=== PATIENT | male | born 1985 | race American Indian/Alaskan Native ===

== ENCOUNTER 2016-04-30 13:07 | Emergency (ER) | payer MEDICAID, OTHER ==
[2016-04-30 13:07] VITALS: BMI 17.4
[2016-04-30 13:26] VITALS: O2SAT 99
[2016-04-30] MEDS ORDERED: Sodium Chloride 0.9% 1,000 ML IV SCH (13:45)
--- NOTE | 2016-04-30 14:17 | ED PDOC ---
HPI: Back Time Seen by Provider: 04/30/16 13:17 Chief Complaint (Nursing): Back Pain Chief Complaint (Provider): back pain History Per: Patient Additional Complaint(s): pt c/o low back pain since 03/05, worsening over the past 3 days. states he works at [employer] though he denies fall or injury. denies fever, cp, sob, abd pain, n/v, incontinence, numbness, weakness distally. no previous hx back pains. no otc meds attempted. Past Medical History Reviewed: Historical Data, Nursing Documentation, Vital Signs Vital Signs: Last Vital Signs Temp 98.8 F 04/30/16 13:12 Pulse 115 H 04/30/16 13:12 Resp 16 04/30/16 13:12 BP 134/76 04/30/16 13:12 Pulse Ox 99 04/30/16 13:12 - Medical History PMH: No Chronic Diseases Denies: HIV - Family History Family History: States: No Known Family Hx - Social History Current smoker - smoking cessation education provided: Yes Alcohol: < 2 Drinks/Day Drugs: Denies - Home Medications Home Medications: Ambulatory Orders Medication Instructions Recorded Cyclobenzaprine [Cyclobenzaprine 10 mg PO Q8 #15 tab 04/30/16 HCl] Naproxen [Naprosyn] 500 mg PO Q12 #20 tablet 04/30/16 - Allergies Allergies/Adverse Reactions: Allergies Allergy/AdvReac Type Severity Reaction Status Date / Time No Known Allergies Allergy Verified 11/14/13 02:37 Review of Systems ROS Statement: Except As Marked, All Systems Reviewed And Found Negative Musculoskeletal: Positive for: Back Pain Physical Exam - Reviewed Nursing Documentation Reviewed: Yes Vital Signs Reviewed: Yes - Physical Exam Appears: Positive for: Non-toxic, Uncomfortable Skin: Positive for: Normal Color, Warm, DRY Cardiovascular/Chest: Positive for: Regular Rate, Rhythm, Tachycardia Respiratory: Positive for: CNT, Normal Breath Sounds Gastrointestinal/Abdominal: Positive for: Normal Exam, Bowel Sounds, Soft. Negative for: Tenderness Back: Positive for: Decreased ROM, Muscle Spasm (B/L lower paraspinous), Other ( SLR neg B/L LE. n/v intact distally. ). Negative for: Vertebral Tenderness DTR - Knee (R): 2+ DTR - Knee (L): 2+ Neurologic/Psych: Positive for: Alert, Oriented, Gait (antalgic). Negative for : Motor/Sensory Deficits - Laboratory Results Result Diagrams: 04/30/16 14:30 04/30/16 14:30 - ECG O2 Sat by Pulse Oximetry: 99 Medical Decision Making Medical Decision Makin yo c/o back pain for two months, worsening x one week. initial w/u shows tachycardia, mildly elevated wbc and diffuse paraspinal tenderness. CT w/ IV contast ordered to rule out indolent abscess or lesions shows no acute pathology. on reevaluation pt's pain improved, ambulating unassisted. ESR neg. VS normalized. crp, hiv, bcx pending. case discussed with Dr. Monet. will d/ c home to f/u clinic or else return to ED. pt agreeable to plan. Disposition - Clinical Impression Clinical Impression: Back pain - Patient ED Disposition Is Patient to be Admitted: No - Disposition Referrals: [facility] [Outside] Disposition: Routine/Home Disposition Time: 20:11 Condition: GOOD Prescriptions: Cyclobenzaprine [Cyclobenzaprine HCl] 10 mg PO Q8 #15 tab Naproxen [Naprosyn] 500 mg PO Q12 #20 tablet Instructions: Acute Low Back Pain (ED) Forms: [facility] ED School/Work Excuse
[2016-04-30 14:48] LABS: BASO % 0.1 % (0.0-2.0); HEMATOCRIT 40.5 % (35.0-51.0); LYMPH # 0.8 K/uL (1.0-4.3); LYMPH % 5.9 % (20.0-40.0); MEAN CELL VOLUME 83.2 fl (80.0-94.0); MEAN CORPUSCULAR HEMOGLOBIN 27.7 pg (27.0-31.0); MEAN CORPUSCULAR HGB CONC 33.3 g/dL (33.0-37.0); MEAN PLATELET VOLUME 8.6 fl (7.2-11.7); MONO # 0.5 K/uL (0.0-0.8); MONO % 3.9 % (0.0-10.0); NEUT # 11.8 K/uL (1.8-7.0); NEUT % 90.1 % (50.0-75.0); PLATELET COUNT 221 K/uL (130-400); RED CELL DISTRIBUTION WIDTH 13.9 % (11.5-14.5); WHITE BLOOD COUNT 13.1 K/uL (4.8-10.8)
[2016-04-30 14:51] LABS: RBC URINE 5 /hpf (0-3); URINE BACTERIA RARE (<OCC); URINE BILIRUBIN NEGATIVE (NEGATIVE); URINE BLOOD NEGATIVE (NEGATIVE); URINE COLOR YELLOW (YELLOW); URINE GLUCOSE (UA) 50 mg/dL (Normal); URINE KETONE 20 mg/dL (NEGATIVE); URINE LEUKOCYTE ESTERASE NEG Leu/uL (Negative); URINE PROTEIN 30 mg/dL (NEGATIVE); URINE UROBILINOGEN 0.2-1.0 mg/dL (0.2-1.0); WBC URINE 4 /hpf (0-5)
[2016-04-30 15:00] LABS: BLOOD UREA NITROGEN 20 mg/dl (9-20); CALCIUM 9.6 mg/dL (8.4-10.2); CARBON DIOXIDE 28 mmol/L (22-30); CHLORIDE 100 mmol/L (98-107); GFR AFRICAN-AMERICAN > 60; GLUCOSE,RANDOM 124 mg/dL (75-110); POTASSIUM 3.5 MMOL/L (3.6-5.0); SODIUM 142 mmol/l (132-148)
[2016-04-30 15:39] LABS: NEUTROPHIL 87 % (42-75); REACTIVE LYMPHOCYTES 3 % (0-0); TOTAL CELLS COUNTED 100
[2016-04-30] MEDS ORDERED: Iohexol 300 100 ML IJ ONE (15:46)
--- NOTE | 2016-04-30 16:43 | CT ---
PROCEDURE: CT Lumbar Spine without contrast HISTORY: Back pain. COMPARISON: None. TECHNIQUE: Axial computed tomography images were obtained of the lumbar spine without the use of intravenous contrast. Coronal and sagittal reformatted images were created and reviewed. Radiation dose: Total exam DLP = 274.84 mGy-cm. FINDINGS: VERTEBRAE: Unremarkable. No fracture. Normal alignment. DISCS/SPINAL CANAL/NEURAL FORAMINA: L1-2: No definite evidence of disc herniation, spinal canal or neural foraminal narrowing. L2-3: No definite evidence of disc herniation, spinal canal or neural foraminal narrowing. L3-4: No definite evidence of disc herniation, spinal canal or neural foraminal narrowing. L4-5: No definite evidence of disc herniation, spinal canal or neural foraminal narrowing. L5-S1: Very mild broad-based posterior disc bulge. No neural foraminal stenosis. PARASPINAL SOFT TISSUES: Sub centimeter hypodensity in the left kidney likely cyst. OTHER FINDINGS: None. IMPRESSION: Very mild degenerative changes at L5-S1. No apparent fracture. Further imaging can be obtained if clinically indicated.
[2016-04-30] MEDS ORDERED: Sodium Chloride 0.9% 1,000 ML IV STA (16:57)
[2016-04-30 17:21] LABS: ERYTHROCYTE SEDIMENTATION RATE 6 mm/hr (0-15)
[2016-04-30 20:06] VITALS: BP 108/59; PULSE 68; RESP 18; TEMP 98.5
== END 2016-04-30 20:22 | disposition home or self-care (01) ==
LOC: H.ER 13:07
DX: M54.9 Dorsalgia, unspecified (principal); R00.0 Tachycardia, unspecified; D72.829 Elevated white blood cell count, unspecified
CPT/HCPCS: 72132; 80048; 81003; 85025; 85651; 86703; 87040; 96374; 96376; 99283; G0480; J2270; J7040; Q9967